=== PATIENT | female | born 2000 | race African-American/Black ===

== ENCOUNTER 2021-10-22 09:06 | Observation (INO) | payer OTHER ==
[2021-10-22 10:17] VITALS: BMI 45.7
[2021-10-22] MEDS ORDERED: hydrALAZINE 20 MG/ML VIAL SLOW IVP PRN ×2 (10:20→15:16)
[2021-10-22] MEDS ORDERED: Lactated Ringer's 1,000 ML IV SCH ×4 (10:30→15:30)
[2021-10-22 12:04] LABS: SARS-CoV-2 NAA Rapid Test DETECTED (NotDetected)
[2021-10-22] MEDS ORDERED: Butorphanol Tartrate 1 MG/ML VIAL SLOW IVP PRN (15:16)
[2021-10-22] MEDS ORDERED: Ondansetron PF 4 MG/2 ML Vial IVP PRN (15:16)
[2021-10-22] MEDS ORDERED: Promethazine HCl 25 MG/ML VIAL IM PRN (15:16)
[2021-10-22 16:35] LABS: #Monocytes 0.9 10x3/uL (0.0-1.1); #Neutrophils 7.4 10x3/uL (1.5-8.4); %Basophils 0.1 % (0.0-2.0); %Eosinophils 0.3 % (0.0-6.0); %Lymphocytes 6.6 % (18.0-47.0); %Monocytes 10.5 % (0.0-10.0); %Neutrophils 81.9 % (40.0-75.0); Hemoglobin 10.4 g/dL (12.0-15.5); Mean Corpuscular HGB CONC 34.1 g/dL (32.0-36.0); Platelet Count 188 10x3/uL (150-450); RBC Distribution Width 13.3 % (11.5-14.5); Red Blood Cell (RBC) Count 3.59 10x6/uL (3.90-5.03)
[2021-10-22 20:16] LABS: Bilirubin Neg (Negative); Blood, Urine 10 (Negative); Clarity Clear (Clear); Glucose, Urine (Dipstick) Normal (Negative); Ketone, Urine Negative (Negative); Leukocyte 500 (Negative); Nitrite Negative (Negative); Protein, Urine (Dipstick) Negative (Neg-Trace); Specific Gravity, Urine 1.005 (1.002-1.036); Urobilinogen Normal mg/dL (Less than 2)
[2021-10-22 20:23] LABS: Urine Culture Reflex No No
[2021-10-22 20:27] LABS: Bacteria/HPF 3+ HPF (None Seen); WBC/HPF Greater Than 50 HPF (0-3)
== END 2021-10-23 13:22 | disposition home or self-care (01) ==
LOC: CSHLD/OP 09:06 → CSHLD 15:16 → UNDOADMOB 10-23 03:55
PROVIDERS: ADMIT Family Medicine; ATTEND Family Medicine
DX: O98.513 Other viral diseases complicating pregnancy, third trimester (principal); U07.1 COVID-19; O36.8330 Maternal care for abnormalities of the fetal heart rate or rhythm, third trimester, not applicable or unspecified; O47.1 False labor at or after 37 completed weeks of gestation; Z3A.38 38 weeks gestation of pregnancy; Z88.0 Allergy status to penicillin; Z88.6 Allergy status to analgesic agent; Z88.8 Allergy status to other drugs, medicaments and biological substances
CPT/HCPCS: 36415; 81001; 85025; G0378; U0002

== ENCOUNTER 2021-10-30 15:53 | Outpatient (CLI) | payer OTHER | END 2021-10-30 15:54 | disposition home or self-care (01) | LOC: CSHLAB 15:53 | PROVIDERS: ATTEND Family Medicine | DX: U07.1 COVID-19 (principal) | CPT/HCPCS: 87811 ==

== ENCOUNTER 2021-11-01 19:30 | Inpatient (IN) | payer OTHER ==
[2021-11-02] MEDS ORDERED: Methylergonovine 0.2 MG/ML VIAL IM PRN (02:04)
[2021-11-02] MEDS ORDERED: Lidocaine 1% (PF) 30 ML VIAL SC PRN (02:04)
[2021-11-02] MEDS ORDERED: Diphenoxylate HCl/Atropine Tablet PO PRN (02:04)
[2021-11-02] MEDS ORDERED: Carboprost 250 MCG/ML AMP IM PRN (02:04)
[2021-11-02] MEDS ORDERED: Promethazine HCl 25 MG/ML VIAL IM PRN ×3 (02:04→13:03)
[2021-11-02] MEDS ORDERED: Ondansetron PF 4 MG/2 ML Vial IVP PRN ×3 (02:04→13:03)
[2021-11-02] MEDS ORDERED: hydrALAZINE 20 MG/ML VIAL SLOW IVP PRN ×2 (02:04→13:03)
[2021-11-02] MEDS ORDERED: Butorphanol Tartrate 1 MG/ML VIAL SLOW IVP PRN (02:04)
[2021-11-02] MEDS ORDERED: Misoprostol 200 MCG TAB PR PRN (02:04)
[2021-11-02] MEDS ORDERED: NS w/ Oxytocin 30 units 500 ML IV SCH ×3 (02:04→13:03)
[2021-11-02] MEDS ORDERED: Lactated Ringer's 1,000 ML IV SCH (02:30)
[2021-11-02 02:34] VITALS: BMI 45.7
[2021-11-02] MEDS: Misoprostol 100 MCG TAB VAG SCH ×2 (03:11→16:56)
[2021-11-02 03:33] LABS: Hemoglobin 11.5 g/dL (12.0-15.5); Mean Corpuscular HGB CONC 33.3 g/dL (32.0-36.0); Mean Corpuscular Hemoglobin 28.6 pg (27.0-33.0); Mean Corpuscular Volume 85.8 fl (81.6-98.3); Mean Platelet Volume 10.8 fl (7.4-10.4); Platelet Count 229 10x3/uL (150-450); RBC Distribution Width 13.4 % (11.5-14.5); Red Blood Cell (RBC) Count 4.02 10x6/uL (3.90-5.03); White Blood Cell (WBC) Count 10.3 10x3/uL (3.5-10.5)
[2021-11-02 04:06] LABS: Syphilis Antibody Nonreactive (Nonreactive); Syphilis Antibody Index 0.11 S/CO (<1.00 Non-Reactive)
[2021-11-02 04:07] LABS: Hep B Surf Ag Non-Reactive S/CO (NonReactive)
[2021-11-02 04:26] LABS: HBSAg Index 0.21 S/CO (0-0.99)
[2021-11-02] MEDS ORDERED: Fentanyl 2 mcg/Bup 0.1% Cadd 100 ML ONE (09:12)
[2021-11-02] MEDS ORDERED: Butorphanol Tartrate 1 MG/ML VIAL ONE (09:39)
[2021-11-02] MEDS ORDERED: ePHEDrine Sulfate 50 MG/10 ML VIAL SLOW IVP PRN (10:56)
[2021-11-02] MEDS ORDERED: diphenhydrAMINE 50 MG/ML VIAL IVP PRN (10:56)
[2021-11-02] MEDS ORDERED: Lactated Ringer's 500 ML IV PRN (10:56)
[2021-11-02] MEDS ORDERED: Naloxone HCl 0.4 mg/ml Vial IVP PRN ×2 (10:56)
[2021-11-02] MEDS ORDERED: Moisturizing Cream (Eucerin) 113 GM JAR TOP PRN (10:56)
[2021-11-02] MEDS ORDERED: Acetaminophen 325 MG TAB PO PRN (10:56)
[2021-11-02] MEDS ORDERED: Communication Order-Pharmacy FS SCH (11:00)
[2021-11-02] MEDS ORDERED: Fentanyl 2 mcg/Bupivacaine 0.1% Cassette 100 ML EPIDURAL SCH (11:00)
[2021-11-02] MEDS ORDERED: Benzocaine-Menthol 82.5 ML CAN TOP PRN (13:03)
[2021-11-02] MEDS ORDERED: Bisacodyl 10 MG SUPP PR PRN (13:03)
[2021-11-02] MEDS ORDERED: diphenhydrAMINE 25 MG CAP PO PRN (13:03)
[2021-11-02] MEDS ORDERED: Lanolin Ointment 7 GM TUBE TOP PRN (13:03)
[2021-11-02] MEDS ORDERED: Milk Of Magnesia 30 ML UDCUP PO PRN (13:03)
[2021-11-02] MEDS ORDERED: Boostrix 0.5 ML (Tdap) VIAL IM ONE (13:03)
[2021-11-02] MEDS: Ferrous Sulfate 325 MG TAB PO SCH (19:15)
[2021-11-02] MEDS: Docusate 100 MG CAP PO SCH (21:09)
[2021-11-03] MEDS: traMADol HCl 50 MG TAB PO PRN ×3 (03:28→14:08)
[2021-11-03] MEDS: Ferrous Sulfate 325 MG TAB PO SCH (07:49)
[2021-11-03] MEDS: Docusate 100 MG CAP PO SCH (08:29)
[2021-11-03] MEDS ORDERED: Prenatal Vitamin 1 TAB PO SCH (09:00)
[2021-11-03 16:52] VITALS: BP 106/68; TEMP 98.2
== END 2021-11-03 18:05 | disposition home or self-care (01) | DRG 807 ==
LOC: CSHLD 11-02 01:45 → CSHPP 11-02 16:30
PROVIDERS: ADMIT Family Medicine; ATTEND Family Medicine
PROC: 10E0XZZ Delivery of Products of Conception, External Approach (ICD-10-PCS; principal; 2021-11-02)
PROC: 10907ZC Drainage of Amniotic Fluid, Therapeutic from Products of Conception, Via Natural or Artificial Opening (ICD-10-PCS; 2021-11-02)
PROC: 3E0P7VZ Introduction of Hormone into Female Reproductive, Via Natural or Artificial Opening (ICD-10-PCS; 2021-11-02)
DX: O69.81X0 Labor and delivery complicated by cord around neck, without compression, not applicable or unspecified (principal); Z37.0 Single live birth; Z3A.40 40 weeks gestation of pregnancy; Z88.6 Allergy status to analgesic agent; Z88.8 Allergy status to other drugs, medicaments and biological substances; Z88.0 Allergy status to penicillin
CPT/HCPCS: 51702; 85027; 86780; 86850; 86900; 86901; 87340

== ENCOUNTER 2023-03-04 15:31 | Inpatient (IN) | payer SELFPAY ==
[2023-03-04 15:52] VITALS: BMI 44.0
[2023-03-04] MEDS ORDERED: hydrALAZINE 20 MG/ML VIAL SLOW IVP PRN ×2 (16:15→17:48)
[2023-03-04] MEDS ORDERED: Misoprostol 200 MCG TAB PR PRN (17:48)
[2023-03-04] MEDS ORDERED: Ondansetron PF 4 MG/2 ML Vial IVP PRN ×2 (17:48→22:18)
[2023-03-04] MEDS ORDERED: Promethazine HCl 25 MG/ML VIAL IM PRN ×2 (17:48→22:18)
[2023-03-04] MEDS ORDERED: Tranexamic Acid 1,000 MG/10 ML VIAL IVP PRN (17:48)
[2023-03-04] MEDS ORDERED: Lidocaine 1% (PF) 30 ML VIAL SC PRN (17:48)
[2023-03-04] MEDS ORDERED: Carboprost 250 MCG/ML AMP IM PRN (17:48)
[2023-03-04] MEDS ORDERED: Diphenoxylate HCl/Atropine Tablet PO PRN (17:48)
[2023-03-04] MEDS ORDERED: fentaNYL 50 mcg/mL 1 mL Vial SLOW IVP PRN (17:48)
[2023-03-04] MEDS ORDERED: Methylergonovine 0.2 MG/ML VIAL IM PRN (17:48)
[2023-03-04] MEDS ORDERED: Oxytocin 30 units/NS 500 ML 500 ML IV SCH ×3 (18:00)
[2023-03-04] MEDS: Lactated Ringer's 1,000 ML IV SCH ×3 (18:45→22:45)
[2023-03-04 18:47] LABS: Hematocrit 37.8 % (34.9-44.5); Hemoglobin 12.4 g/dL (12.0-15.5); Mean Corpuscular HGB CONC 32.8 g/dL (32.0-36.0); Mean Corpuscular Hemoglobin 28.1 pg (27.0-33.0); Mean Corpuscular Volume 85.5 fl (81.6-98.3); Platelet Count 271 10x3/uL (150-450); RBC Distribution Width 13.2 % (11.5-14.5); Red Blood Cell (RBC) Count 4.42 10x6/uL (3.90-5.03); White Blood Cell (WBC) Count 14.4 10x3/uL (3.5-10.5)
[2023-03-04 19:12] LABS: Syphilis Antibody Nonreactive (Nonreactive); Syphilis Antibody Index 0.12 S/CO (<1.00 Non-Reactive)
[2023-03-04 19:13] LABS: HBSAg Index 0.15 S/CO (0-0.99); Hep B Surf Ag - L&D Non-Reactive S/CO (NonReactive)
[2023-03-04] MEDS ORDERED: fentaNYL/Ropivacaine Epidural 100 ML ONE (21:44)
[2023-03-04] MEDS ORDERED: diphenhydrAMINE 50 MG/ML VIAL IVP PRN (22:18)
[2023-03-04] MEDS ORDERED: ePHEDrine Sulfate 50 MG/10 ML VIAL SLOW IVP PRN (22:18)
[2023-03-04] MEDS ORDERED: Naloxone HCl 0.4 mg/ml Vial IVP PRN ×2 (22:18)
[2023-03-04] MEDS ORDERED: Lactated Ringer's 500 ML IV PRN (22:18)
[2023-03-04] MEDS ORDERED: Moisturizing Cream (Eucerin) 113 GM JAR TOP PRN (22:18)
[2023-03-04] MEDS ORDERED: Communication Order-Pharmacy FS SCH (22:30)
[2023-03-04] MEDS ORDERED: fentaNYL 2 mcg/Ropivacaine 0.2% Epidural 100 ML CADD EPIDURAL SCH (22:30)
[2023-03-05] MEDS ORDERED: diphenhydrAMINE 25 MG CAP PO PRN (03:47)
[2023-03-05] MEDS ORDERED: Boostrix 0.5 ML (Tdap) VIAL (>/=7 yrs of age) IM ONE (03:47)
[2023-03-05] MEDS ORDERED: hydrALAZINE 20 MG/ML VIAL SLOW IVP PRN (03:47)
[2023-03-05] MEDS ORDERED: Ondansetron PF 4 MG/2 ML Vial IVP PRN (03:47)
[2023-03-05] MEDS ORDERED: Milk Of Magnesia 30 ML UDCUP PO PRN (03:47)
[2023-03-05] MEDS ORDERED: Bisacodyl 10 MG SUPP PR PRN (03:47)
[2023-03-05] MEDS ORDERED: Lanolin Ointment 7 GM TUBE TOP PRN (03:47)
[2023-03-05] MEDS ORDERED: Oxytocin 30 units/NS 500 ML 500 ML IV SCH (03:47)
[2023-03-05] MEDS: Ibuprofen 800 MG TAB PO SCH ×3 (05:10→21:01)
[2023-03-05] MEDS ORDERED: Ibuprofen 800 MG TAB PO SCH (06:00)
[2023-03-05] MEDS: Ferrous Sulfate 325 MG TAB PO SCH ×2 (08:16→18:22)
[2023-03-05] MEDS: Docusate 100 MG CAP PO SCH ×2 (08:30→21:00)
[2023-03-05] MEDS: Prenatal Vitamin 1 TAB PO SCH (08:30)
[2023-03-05] MEDS ORDERED: Bupivacaine 0.25% HCL 30 ML VIAL ONE (11:00)
[2023-03-06] MEDS: Ibuprofen 800 MG TAB PO SCH (05:42)
[2023-03-06] MEDS: Ferrous Sulfate 325 MG TAB PO SCH (07:47)
[2023-03-06 07:50] VITALS: BP 123/59; TEMP 98.4
[2023-03-06] MEDS: Docusate 100 MG CAP PO SCH (08:02)
[2023-03-06] MEDS: Prenatal Vitamin 1 TAB PO SCH (08:02)
== END 2023-03-06 15:45 | disposition home or self-care (01) | DRG 807 ==
LOC: CSHLD/OP 15:31 → CSHLD 17:48 → CSHPP 03-05 02:32
PROVIDERS: ADMIT Family Medicine; ATTEND Family Medicine
PROC: 10E0XZZ Delivery of Products of Conception, External Approach (ICD-10-PCS; principal; 2023-03-05)
PROC: 0UQMXZZ Repair Vulva, External Approach (ICD-10-PCS; 2023-03-05)
PROC: 3E033XZ Introduction of Vasopressor into Peripheral Vein, Percutaneous Approach (ICD-10-PCS; 2023-03-05)
DX: O70.0 First degree perineal laceration during delivery (principal); Z37.0 Single live birth; Z3A.38 38 weeks gestation of pregnancy
CPT/HCPCS: 76819; 85027; 86780; 86850; 86900; 86901; 87340; J2590; J7120; S0020

== ENCOUNTER 2023-07-02 13:12 | Emergency (ER) | payer SELFPAY ==
[2023-07-02 16:10] LABS: Influenza A by NAA Not Detected (NotDetected); Influenza B by NAA Not Detected (NotDetected); SARS-CoV-2 NAA Rapid Test Not Detected (NotDetected)
== END 2023-07-02 15:21 | disposition home or self-care (01) ==
LOC: CSHERS 13:12
DX: B95.61 Methicillin susceptible Staphylococcus aureus infection as the cause of diseases classified elsewhere (principal)
CPT/HCPCS: 87081; 87430; 99283

== ENCOUNTER 2025-01-19 18:52 | Emergency (ER) | payer SELFPAY ==
[2025-01-19 19:22] LABS: #Basophils 0.08 10x3/uL (0.0-0.2); #Eosinophils 0.31 10x3/uL (0.0-0.5); #Monocytes 0.68 10x3/uL (0.0-1.1); #Neutrophils 8.29 10x3/uL (1.5-8.4); %Basophils 0.6 % (0.0-2.0); %Eosinophils 2.3 % (0.0-6.0); %Lymphocytes 29.3 % (18.0-47.0); %Monocytes 5.1 % (0.0-10.0); %Neutrophils 62.5 % (40.0-75.0); Hematocrit 42.1 % (34.9-44.5); Hemoglobin 13.8 g/dL (12.0-15.5); Mean Corpuscular Hemoglobin 28.6 pg (27.0-33.0); Mean Corpuscular Volume 87.3 fL (81.6-98.3); Platelet Count 321 10x3/uL (150-450); Red Blood Cell (RBC) Count 4.82 10x6/uL (3.90-5.03); White Blood Cell (WBC) Count 13.28 10x3/uL (3.5-10.5)
[2025-01-19 19:37] LABS: ALT (SGPT) 11 U/L (Less than 34); AST (SGOT) 34 U/L (11-34); Albumin 3.8 g/dL (3.1-4.5); Alkaline Phosphatase 61 U/L (40-110); Anion Gap 10 mmol/L (10-20); BUN (Urea Nitrogen) 8 mg/dL (7.0-18.7); Bilirubin, Total 0.3 mg/dL (0.3-1.2); Calc. Creatinine Clearance 0 mL/min (70-130); Calcium 9.3 mg/dL (7.8-10.44); Carbon Dioxide 28 mmol/L (22-29); Chloride 106 mmol/L (98-107); Globulin 3.0 g/dL (2.4-3.5); Glucose 90 mg/dL (70-105); Potassium 3.9 mmol/L (3.5-5.1); Sodium 140 mmol/L (136-145)
[2025-01-19] MEDS ORDERED: cefTRIAXone (ROCEPHIN) 2 GM VIAL ONE (19:49)
[2025-01-19] MEDS ORDERED: Ondansetron PF 4 MG/2 ML Vial ONE (20:27)
[2025-01-19 21:14] LABS: CSF, Glucose 57 mg/dl (40-70); CSF, Protein 19.4 mg/dL (15-40)
[2025-01-19 21:17] LABS: Color Of CSF Supernatant COLORLESS (Colorless); Unspun CSF Color COLORLESS (Colorless)
[2025-01-19 22:13] LABS: CSF RBC Count - Manual 1 /cu.mm (None Seen); CSF Source CSF; CSF WBC/NonHematics Count-Man 1 /cu.mm (0-5)
== END 2025-01-19 22:40 | disposition home or self-care (01) ==
LOC: CSHERS 18:52
DX: R51.9 Headache, unspecified (principal)
CPT/HCPCS: 36415; 62270; 70450; 80053; 82945; 83605; 84157; 85025; 86592; 87040; 87070; 87205; 87529; 89051; 96365; J0696